=== PATIENT | female | born 1995 | race Caucasian/White ===

== ENCOUNTER 2016-12-12 11:05 | Emergency (ER) | payer OTHER ==
--- NOTE | ~2016-12-12 | CT2 ---
[facility] A Service of [facility] / [facility] RADIOLOGY TEXT RESULTS PATIENT: EDINSON MAGALLON LOCATION: SED : [birth year] UNIT #: [id number] AGE: [address]: Tay Medel MD SEX: F ORDER DR: [id number] [place] [id number] MR#: [id number] Acc #: [id number] NAME: EDINSON MAGALLON : 1995 SEX: F STUDY DATE/TIME: UNIT: SED ROOM: STUDY DESCRIPTION: CT Abd and Pelv W Cont Attending Physician: Tay Medel M.D. Ordering Physician: Tay Medel M.D. Primary Care Physician: Vesna Carter MEDICAL IMAGING REPORT This report is preliminary unless electronic signature is present. EXAM CT abdomen and pelvis with contrast 12/12/2016 1248 hours HISTORY 21-year-old with diffuse abdominal pain, nausea and vomiting beginning this morning. COMPARISON CT abdomen and pelvis 03/04/[address] images were obtained from the lung bases through the pubic symphysis with intravenous contrast. Sagittal and coronal reconstructions were performed. Total exam DLP 532 mGy - cm. Contrast was Isovue-[address] exam was performed with one or more of the following radiation dose reduction techniques: automatic exposure control, adjustment of mA and/or kV according to patient size, and iterative reconstruction. FINDINGS Images through the lung bases are clear. There is no pleural effusion. Distal esophagus appears normal. Images through the abdomen demonstrate a normal appearance to the liver, spleen, gallbladder and bile ducts. The pancreas is normal. There is no adrenal lesion seen. The kidneys enhance normally. There is no renal obstruction or ureteral calculus. The patient has had surgery for duodenal atresia. The stomach is nondilated. There is a gastric stimulator device with leads over the left lateral aspect of the fundus with power pack over the right anterior lower abdominal wall. Leads appear intact. The proximal small bowel appears normal. In the right lower quadrant, question is raised of wall [facility] A Service of [facility] RADIOLOGY TEXT RESULTS PATIENT: EDINSON MAGALLON LOCATION: SED : 93 UNIT #: [id number] AGE: [address]: Tay Medel MD SEX: F ORDER DR: thickening in loops of small bowel which are unopacified. These are somewhat difficult to assess but do appear to contain the terminal ileum. There is no stranding around the bowel. The colon is nondistended. There is moderate stool in the colon. There is air in the distal colon without colonic wall thickening. CT pelvis demonstrates an anteverted uterus. There are small follicular cysts on both ovaries right greater than left. There is no definite pelvic fluid. IMPRESSION 1. The patient has had prior surgery for duodenal atresia. The stomach appears somewhat small but is not thick-walled. There is a gastric stimulator device present with power pack in the lower anterior right abdominal wall and leads terminating over the left lateral aspect of the fundus. 2. There is no oral contrast material which limits assessment of the bowel. The proximal small bowel is normal. In the right lower quadrant there appears to a segment or segments of bowel including the terminal ileum which are thick-walled. This extends into the cecum. Findings could represent infectious or inflammatory change. I cannot clearly discriminate the appendix. There is no free fluid or fluid collection. 3. There is moderate stool in the colon. The distal colon is gas filled. There is no colonic wall thickening. 4. No renal or ureteral calculi are seen. Dictated by... Alicia Barrera M.D. THIS IS AN ELECTRONICALLY VERIFIED REPORT Alicia Barrera M.D. at 12/13/2016 8:53 AM CHARLEY/nnamdi TD: 12/12/2016 19:26 JOB #: [id number] MEDICAL IMAGING REPORT Page 1 of 1
[~2016-12-12 11:05] MED LIST: ALBUTEROL17 GM; CIPRO PO; CLARITIN10 MG; CLINDAMYCIN HC300 MG PO; DICYCLOMINE HCL20 MG PO; DULCOLAX10 MG/SUPP RC; FLAGYL PO; FLEXERIL PO; IBUPROFEN800 MG PO; IMITREX PO; KEPPRA500 M2 PO; KETOPROFEN PO; LORTAB 10-5001 EACH PO; LORTAB 5/500 TA1 TA1 PO; LORTAB 7.5-5001 TAB PO; MIRALAX17 GM PO; MUCINEX DM1 TAB.SR . PO; NICOTINE PATCH1 BOX EXT; NO MEDICATIONS; PERCOCET5/325 PO; PHENERGAN12.5 MG/SU RC; PHENERGAN25 M1 PO; PHENERGAN25 MG PO; PRILOSEC20 MG PO; PROTONIX PO; PROVENTIL INHALER; SINGULAIR; ULTRAM PO; VICODIN 5/1 TAB 5/50 PO; VICODIN 5/500 T1 TAB PO; VOLTAREN5 ML PO
[2016-12-12] MEDS ORDERED: NO MEDICATIONS (11:07)
[2016-12-12 11:41] LABS: BASOPHIL# 0.1 X10e3 (0-0.3); BASOPHIL% 0.9 % (0-2.5); DIFF IND NO; EOSINOPHIL# 0.2 X10e3 (0-0.7); EOSINOPHIL% 2.1 % (0.0-7.0); HEMOGLOBIN 11.2 gm/dL (12.0-16.0); LYMPHOCYTE% 35.8 % (17.0-45.0); MEAN CELL VOLUME 81.8 FL (83-96); MEAN CORPUSCULAR HEMOGLOBIN 26.2 PG (28-34); MEAN PLATELET VOLUME 8.5 FL (6.5-11.5); MONOCYTE# 0.7 X10e3 (0-1.0); NEUTROPHIL# 4.5 X10e3 (1.5-7.1); NEUTROPHIL% 53.2 % (40-75); PLATELET COUNT 393 X10e3 (140-420); RED BLOOD COUNT 4.29 X10e (3.90-5.30); RED CELL DISTRIBUTION WIDTH 19.7 % (11.0-15.5); WHITE BLOOD COUNT 8.4 X10e3 (4.0-10.5)
[2016-12-12 12:00] LABS: ALBUMIN SERUM 4.9 g/dL (3.5-5.0); BILIRUBIN, DIRECT 0.1 mg/dL (0.0-0.2); BILIRUBIN,INDIRECT 0.1 mg/dL (0.0-0.9); BILIRUBIN,TOTAL 0.2 mg/dL (0.2-2.0); BUN/CREATININE RATIO 14.28; CALCIUM SERUM 9.4 mg/dL (8.4-10.2); CREATININE SERUM 0.7 mg/dL (0.6-1.4); GLOM FILT RATE Estimated 122.1 mL/min (>60); POTASSIUM 3.8 mmol/L (3.5-5.1); PROTEIN TOTAL SERUM 7.8 g/dL (6.0-8.3)
[2016-12-12 12:17] LABS: URINE SOURCE CLEAN CATCH
[2016-12-12 12:21] LABS: URINE APPEARANCE CLEAR; URINE BILIRUBIN NEG (NEG); URINE BLOOD NEG (NEG); URINE COLOR YELLOW; URINE GLUCOSE NEG (NORM); URINE KETONE NEG (NEG); URINE LEUKOCYTE ESTERASE NEG (NEG); URINE NITRATE NEG (NEG); URINE PH 5.5 (5-8); URINE PROTEIN NEG (NEG); URINE SPECIFIC GRAVITY 1.025 (1.003-1.035); URINE UROBILINOGEN 0.2 MG/DL (NORM)
[2016-12-12 12:24] LABS: MICRO INDICATED? NO
[2016-12-12 16:50] LABS: AMPHETAMINE NEG (NEG); BARBITURATES NEG (NEG); BENZODIAZEPINES POS (NEG); COCAINE NEG (NEG); MARIJUANA POS (NEG); OPIATES POS (NEG); TRICYCLIC ANTIDEPRESSANTS NEG (NEG); U METHADONE NEG (NEG)
== END 2016-12-12 17:16 ==
LOC: SED 11:05
PROVIDERS: Emergency Medicine
DX: K52.9 Noninfective gastroenteritis and colitis, unspecified (principal); F17.200 Nicotine dependence, unspecified, uncomplicated; Z98.890 Other specified postprocedural states; Z88.8 Allergy status to other drugs, medicaments and biological substances
CPT/HCPCS: 36415; 74177; 80048; 80076; 80307; 81003; 83690; 84703; 85025; 96361; 96374; 96375; 96376; 99285; J1170; J1885; J2060; J2405; J2543; J3010; J3360; Q9967